=== PATIENT | male | born 1985 | race Two or more races ===

== ENCOUNTER → 2024-12-30 | Outpatient (CLI) | payer OTHER ==
[2024-12-30 10:36] LABS: Hepatitis B Surface Antigen Negative (Negative)
== END | disposition home or self-care (01) ==
LOC: LAB 08:28
PROVIDERS: ATTEND Family Medicine
DX: Z20.6 Contact with and (suspected) exposure to human immunodeficiency virus [HIV] (principal); Z77.21 Contact with and (suspected) exposure to potentially hazardous body fluids
CPT/HCPCS: 36415; 86703; 86706; 86803; 87340

== ENCOUNTER 2025-02-18 13:29 | Outpatient (CLI) | payer OTHER ==
[2025-02-19 10:05] LABS: Hepatitis B Surface Antigen Negative (Negative)
== END 2025-02-18 17:00 | disposition home or self-care (01) ==
LOC: LAB 13:29
PROVIDERS: ATTEND Family Medicine
DX: Z77.21 Contact with and (suspected) exposure to potentially hazardous body fluids (principal); Z13.9 Encounter for screening, unspecified
CPT/HCPCS: 36415; 86703; 86706; 86803; 87340

== ENCOUNTER 2025-04-22 15:24 | Outpatient (CLI) | payer OTHER ==
[2025-04-23 10:55] LABS: Hepatitis B Surface Antigen Negative (Negative)
== END 2025-04-22 17:00 | disposition home or self-care (01) ==
LOC: LAB 15:24
PROVIDERS: ATTEND Family Medicine
DX: Z01.89 Encounter for other specified special examinations (principal); Z20.5 Contact with and (suspected) exposure to viral hepatitis; Z20.6 Contact with and (suspected) exposure to human immunodeficiency virus [HIV]
CPT/HCPCS: 36415; 86703; 86706; 86803; 87340